=== PATIENT | female | born 1975 | race Caucasian/White ===

== ENCOUNTER → 2024-06-06 07:35 | Outpatient (CLI) | payer OTHER, SELFPAY ==
[2024-06-06 08:52] LABS: COVID-19 CEPHEID 4-PLEX PCR Negative (Negative); Influenza A - CEPHEID Flu A NEGATIVE (NEGATIVE); Influenza B - CEPHEID Flu B NEGATIVE (NEGATIVE); Respiratory Syncytial Virus Negative (Negative)
== END ==
PROVIDERS: Visit Provider Chiropractor
DX: R05.1 Acute cough (principal); J02.9 Acute pharyngitis, unspecified
CPT/HCPCS: 0241U; 87070